=== PATIENT | female | born 1970 | race Caucasian/White ===

== ENCOUNTER 2017-03-02 05:33 | Emergency (ER) | payer BC ==
[~2017-03-02] VITALS: Ht 167.6 cm; Wt 79.5 kg
[2017-03-02 05:38] VITALS: BP 134/91
[2017-03-02] MEDS ORDERED: FLEXERIL10 MG PO (06:50)
== END 2017-03-02 06:50 | disposition home or self-care (01) ==
LOC: EME 05:33
DX: S39.012A Strain of muscle, fascia and tendon of lower back, initial encounter (principal); M62.830 Muscle spasm of back; X50.0XXA Overexertion from strenuous movement or load, initial encounter; Y93.89 Activity, other specified
CPT/HCPCS: 99281; 99283; J1885; J3360